=== PATIENT | male | born 1970 | race Caucasian/White ===

== ENCOUNTER 2022-09-20 20:12 | Emergency (ER) | payer OTHER, BC ==
[2022-09-20 20:25] VITALS: BP 131/78; PULSE 78; RESP 20; TEMP 98; BMI 31.6
[2022-09-20] MEDS ORDERED: METHOCARBAMOL 500 MG TABLET PO ONE (21:29)
[2022-09-20] MEDS ORDERED: IBUPROFEN 600 MG TABLET (FP) PO ONE ×2 (21:29→21:33)
[2022-09-20] MEDS ORDERED: METHOCARBAMOL 500 MG TABLET ONE (21:33)
[2022-09-20] MEDS ORDERED: ACETAMINOPHEN 500 MG TABLET (FP) ONE (22:36)
== END 2022-09-20 22:49 | disposition home or self-care (01) ==
LOC: JER 20:12 → JERFT 20:12
DX: M54.16 Radiculopathy, lumbar region (principal); V89.2XXA Person injured in unspecified motor-vehicle accident, traffic, initial encounter
CPT/HCPCS: 99283-25